=== PATIENT | female | born 1995 | race Caucasian/White ===

== ENCOUNTER 2021-04-05 16:59 | Emergency (ER) | payer BC, MEDICAID, SELFPAY ==
[2021-04-05 17:23] VITALS: PULSE 87; RESP 16; TEMP 36.8; O2SAT 100; BMI 32.1
--- NOTE | 2021-04-05 18:18 | USR_ITS ---
PROCEDURE INFORMATION: Exam: US , Transvaginal Exam date and time: 04/05/2021 6:18 PM Age: 25 years old Clinical indication: Lmp or gestational age (in weeks): 8 weeks; Antepartum complications; Bleeding; ; Additional info: Vaginal bleeding TECHNIQUE: Imaging protocol: Real-time transvaginal obstetrical ultrasound of the maternal pelvis with image documentation. Transvaginal imaging was used for better evaluation of the fetus, adnexa, and/or cervix. COMPARISON: [facility] Follow up 07/26/2016 10:52 AM FINDINGS: Gestation: Single apparent intrauterine gestational sac. BIOMETRY: Gestational age (AUA): Ultrasonographic age 5 weeks 1 day as reported on provided technologist worksheet series 1, image 29. MATERNAL: Right adnexa: Right ovary appears within normal limits. Left adnexa: Left ovary appears within normal limits US/US transvaginal [id number] IMPRESSION: 1. Single apparent intrauterine gestational sac. 2. Ultrasonographic age 5 weeks 1 day as reported on provided technologist worksheet series 1, image 29. Radiation Dose CTDIVOL = (mGy): DLP = (mGy-cm)
--- NOTE | 2021-04-05 18:19 | W.ED.PREGNAN ---
HPI - General: Chief complaint: OB/Uterine Contractions Stated complaint: BLEEDING/9 WKS /UTI COMPLICATIONS Time Seen by Provider: 04/05/21 17:54 History of Present Illness: HPI Narrative: This patient was referred to our emergency department from the [place] emergency department because of concerns about vaginal spotting. Patient's stated that earlier this afternoon she had spontaneous spotting that she noted when she urinated. She states there is no associated cramping. She is not had recent intercourse. She thinks she is approximately 8 weeks by last menstrual period. She was evaluated at the [place] emergency department to include a quantitative hCG, urinalysis. She has evidence of a urinary tract infection and admits to symptoms of urinary frequency recently. No fevers or chills. No nausea vomiting or diarrhea. She has had 1 prior spontaneous vaginal delivery at 34 weeks. No history of bleeding dyscrasias etc. MD Complaint: vaginal bleeding Exacerbating factors: none Vaginal discharge: none Date of Last Menstrual Period: 02/03/21 OB History - Current : no complications Associated symptoms: Deny abdominal pain, dysuria, headache(s), nausea or vomiting Review of Systems Const: Denies: fever(s) or chills Eyes: Denies: change in vision ENMT: Denies: throat pain or odynophagia Card: Denies: chest pain, palpitations or irregular heart rhythm Resp: Denies: dyspnea, productive cough or non-productive cough GI: Denies: abdominal pain, nausea or vomiting : Reports: urinary frequency, urinary urgency and vaginal bleeding; Denies: flank pain, difficulty voiding or dysuria Skin/Breast: Denies: rash Neuro: Denies: headache(s), numbness in extremities or weakness in extremities Enrique/Lymph: Denies: easy bruising or easy bleeding [facility] ED Female Reproductive History: Date of last menstrual period: 02/03/21 Physical Exam Const: COMMON NORMALS: no acute distress, average body habitus and patient oriented x3 HENMT: COMMON NORMALS: normocephalic, atraumatic and moist oral mucous membranes HEAD & SCALP: normocephalic and atraumatic Eye: COMMON NORMALS: Equal, round and reactive pupils present and conjunctivae normal CONJUNCTIVA: Yes conjunctivae normal PUPIL: Yes Equal, round and reactive pupils present Neck/C-Spine: COMMON NORMALS: full ROM, no lymphadenopathy and no JVD Resp: COMMON NORMALS: normal respiratory effort, No retractions, No use of accessory muscles and clear to auscultation bilaterally AUSCULTATION: clear to auscultation bilaterally Cardio: COMMON NORMALS: no JVD, regular rate, regular rhythm and No murmurs present (Cardio) RATE: regular rate RHYTHM: regular rhythm GI: COMMON NORMALS: Normal to inspection, nondistended, normoactive bowel sounds present, Soft to palpation, non-tender and no masses PALPATION: Yes Soft to palpation : COMMON NORMALS: Yes no CVA tenderness BLADDER/KIDNEY EXAM: Yes no CVA tenderness Back/Pelvis: COMMON NORMALS: no CVA tenderness, thoracic and lumbar spine normal to inspection, no thoracic nor lumbar tenderness and thoraco-lumbar ROM normal Extremity: COMMON NORMALS: normal to inspection, full ROM, capillary refill normal, no calf tenderness and no pedal edema Neuro: COMMON NORMALS: patient oriented x3, no focal motor deficits, no sensory deficits noted and gait normal Skin: COMMON NORMALS: no rashes or lesions noted GENERAL SKIN EXAM: no rashes or lesions noted Course Reevaluation(s): Reevaluation #1: Patient's hCG is just over 800 which is less then 1 would expect to see a confirmatory just intrauterine gestation however she does have a gestational sac. This is likely due to her gestation being either less then anticipated and therefore the fetus is not visualized or #2 possible blighted ovum but it is too early to tell this will require serial hCGs as well as serial ultrasounds. She is Rh- we will go ahead and administer RhoGam at this time. Vital Signs: Vital signs: Vital Signs Temperature 98.3 F 04/05/21 17:23 Pulse Rate 80 04/05/21 18:32 Respiratory Rate 16 04/05/21 17:23 Blood Pressure 118/62 04/05/21 18:32 Pulse Oximetry 100 04/05/21 18:32 MDM - OB/Uterine Contractions Imaging Data^: US OB: Radiologist's impression: Ultrasound shows no evidence of extrauterine masses or gestation. Has intrauterine gestational sac measuring approximately 5 weeks. Discharge Plan Discharge Prescriptions: No Action Zyrtec 10 mg Tablet 10 mg PO DAILY RF: 0 acetaminophen 500 mg Tablet 2,000 mg PO PRN MDD SEE PHARMACY COMMENT PRN (Reason: Pain) RF: 0 Flonase 50 mcg/actuation [place],Suspension 2 spray INTRANASAL DAILY PRN (Reason: Nasal Congestion) RF: 0 Coding Level of Care Code ED Pcmh Specialist for Chg Fwd Exam Comprehensive
[2021-04-05 18:32] VITALS: BP 118/62; PULSE 80; O2SAT 100
[2021-04-05 22:10] VITALS: BP 118/74; PULSE 74; RESP 18; O2SAT 99
--- NOTE | 2021-04-05 23:59 | PC.NURSE ---
rhogam adm on R hip lot: [id number] exp date 03/15/22, blood bank ID# [id number]
[2021-04-06 00:17] VITALS: BP 148/74; PULSE 74; RESP 18; O2SAT 99
== END 2021-04-05 23:50 | disposition home or self-care (01) ==
PROVIDERS: Emergency Provider Emergency Medicine; PCP Physician Assistant Medical
DX: O46.91 Antepartum hemorrhage, unspecified, first trimester (principal); Z3A.01 Less than 8 weeks gestation of pregnancy
CPT/HCPCS: 76830; 84702; 86850; 86900; 90384; 99283

== ENCOUNTER 2021-09-05 14:18 | Emergency (ER) | payer BC, MEDICAID, SELFPAY ==
[2021-09-05 14:28] VITALS: BP 113/66; PULSE 81; RESP 16; TEMP 36.7; O2SAT 99; BMI 32.0
--- NOTE | 2021-09-05 14:32 | XRR_ITS ---
PROCEDURE INFORMATION: Exam: XR Right Ankle Exam date and time: 09/05/2021 3:18 PM Age: 25 years old Clinical indication: Injury or trauma; Fall; Blunt trauma; Ankle; Right TECHNIQUE: Imaging protocol: XR Right ankle. Views: 3 or more views. COMPARISON: No relevant prior studies available. FINDINGS: Bones/joints: Nondisplaced oblique fracture of the distal fibula. Soft tissues: Soft tissue swelling along the lateral ankle. XR/XR ankle RT min 3V* [id number] IMPRESSION: Nondisplaced fracture of the distal fibula.
--- NOTE | 2021-09-05 15:42 | ED_ITS ---
HPI - Extremity Problem General: Chief complaint: Extremity Injury, Lower Stated complaint: right ankle swelling Time Seen by Provider: 09/05/21 14:32 History of Present Illness: Patient fell downstairs today injuring her right ankle. Hurts to bear weight. Denies other injury. Associated symptoms: Deny chest pain, fever(s) or rash Review of Systems Const: Denies: fever(s), chills or body aches Eyes: Denies: eye discomfort ENMT: Denies: throat pain Card: Denies: chest pain Resp: Denies: dyspnea GI: Denies: abdominal pain, nausea or vomiting Musc: Reports: joint pain (Right ankle after a fall downstairs) and joint swelling Skin/Breast: Denies: rash Neuro: Denies: headache(s) Psych: Denies: depression or suicidal ideation [facility] ED Female Reproductive History: Date of last menstrual period: 08/10/21 Physical Exam Const: COMMON NORMALS: no acute distress, patient oriented x3 and alert HENMT: COMMON NORMALS: normocephalic HEAD & SCALP: normocephalic Eye: COMMON NORMALS: EOMs intact bilaterally Neck/C-Spine: COMMON NORMALS: no JVD Resp: COMMON NORMALS: normal respiratory effort and No use of accessory muscles Cardio: COMMON NORMALS: no JVD GI: INSPECTION: Yes normal to inspection Extremity: COMMON NORMALS: normal to inspection and full ROM RIGHT LOWER EXTREMITY: Yes foot & digits (Tenderness lateral malleus area) Right ankle: Yes ROM (Decreased) and Yes neurovascular exam (Intact) Neuro: COMMON NORMALS: patient oriented x3 SENSORIUM/ORIENTATION: Yes alert Psych: COMMON NORMALS: mental status grossly normal Skin: COMMON NORMALS: no rashes or lesions noted GENERAL SKIN EXAM: no rashes or lesions noted Course Vital Signs: Vital signs: Vital Signs Temperature 98.1 F 09/05/21 14:28 Pulse Rate 81 09/05/21 14:28 Respiratory Rate 16 09/05/21 14:28 Blood Pressure 113/66 09/05/21 14:28 Pulse Oximetry 99 09/05/21 14:28 MDM - Extremity (Nontraumatic) Medical Decision Making Right fibular fracture nondisplaced. Ortho consult was ordered. Lab Data Radiology Impressions Ankle X-Ray 09/05/21 14:32 IMPRESSION: Nondisplaced fracture of the distal fibula. Discharge Plan Discharge Patient Disposition: Home Clinical Impression: Closed fibular fracture Qualifiers: Encounter type: initial encounter Fibula location: distal Fracture morphology: other fracture Laterality: right Qualified Code(s): S82.831A - Other fracture of upper and lower end of right fibula, initial encounter for closed fracture Condition: Stable Prescriptions: New hydrocodone-acetaminophen 5-325 mg tablet 1 tab PO TID PRN (Reason: pain) Qty: 14 0RF No Action Zyrtec 10 mg Tablet 10 mg PO DAILY 0RF acetaminophen 500 mg Tablet 2,000 mg PO PRN MDD SEE PHARMACY COMMENT PRN (Reason: Pain) 0RF Flonase 50 mcg/actuation [place],Suspension 2 spray INTRANASAL DAILY PRN (Reason: Nasal Congestion) 0RF Discharge Orders: Discharge ED (Routine); Ordered 09/05/21 Ordered By: Deng Martínez Referrals: Teddy Stockton [Primary Care Provider] - Discharge Diet: Usual diet Discharge Activity: Use walker/crutches as instructed Patient Instructions: Ankle Fracture (ED) Activity Restrictions/Additional Instructions: Follow-up with medical provider as directed. Take medications as prescribed. Return to the ER or your medical provider if condition worsens. Please read and understand discharge instructions. If any questions ask please. Hospital will contact you with appointment for orthopedic clinic. Continue use of crutches- to be not weightbearing on right foot. Coding Level of Care Code ED Building Energy Retrofit Technician for Sailaja Farrell
[2021-09-05] MEDS: HYDROcodone-acetaminophen 5-325 mg Tablet 1 TAB PO (15:44)
--- NOTE | 2021-09-07 10:33 | DCPLANNER ---
Addendum entered by Ninfa Lehman 09/30/21 20:19: Patient had a follow up appointment scheduled with ortho - patient did attend appointment. Addendum entered by Ninfa Lehman 09/08/21 08:21: Patient has a follow up appointment scheduled for Wednesday, September 08, 2021 at 2:[address] Jimenez at ortho. Clinic will call patient with appointment information. Original Note: prep manager had message to schedule a follow up appointment for patient with ortho. prep manager sent patients information to the front office staff at ortho. Patients information will be printed and reviewed. Clinic will call patient with appointment information.
== END 2021-09-05 16:20 | disposition home or self-care (01) ==
PROVIDERS: Emergency Provider Nurse Practitioner Family; PCP Physician Assistant Medical
DX: S82.831A Other fracture of upper and lower end of right fibula, initial encounter for closed fracture (principal); W10.9XXA Fall (on) (from) unspecified stairs and steps, initial encounter
CPT/HCPCS: 73610; 99283; E0114

== ENCOUNTER → 2021-09-08 14:32 | Outpatient (BNVA) | payer BC, MEDICAID, SELFPAY | PROVIDERS: PCP Physician Assistant Medical; Referring Provider Nurse Practitioner Family; Visit Provider Podiatrist Foot & Ankle Surgery | DX: S82.831A Other fracture of upper and lower end of right fibula, initial encounter for closed fracture (principal); W10.9XXA Fall (on) (from) unspecified stairs and steps, initial encounter; F17.210 Nicotine dependence, cigarettes, uncomplicated | CPT/HCPCS: 73610; 99204 ==

== ENCOUNTER 2021-09-08 15:25 | Outpatient (CLI) | payer BC, MEDICAID, SELFPAY | END 2021-09-08 15:26 | disposition home or self-care (01) | LOC: SPT 15:25 | PROVIDERS: PCP Physician Assistant Medical; Visit Provider Podiatrist Foot & Ankle Surgery | DX: Z46.89 Encounter for fitting and adjustment of other specified devices (principal); S82.831D Other fracture of upper and lower end of right fibula, subsequent encounter for closed fracture with routine healing; X58.XXXD Exposure to other specified factors, subsequent encounter | CPT/HCPCS: 97760; L4361 ==

== ENCOUNTER → 2021-09-22 07:53 | Outpatient (BNVA) | payer BC, MEDICAID, SELFPAY | PROVIDERS: PCP Physician Assistant Medical; Visit Provider Podiatrist Foot & Ankle Surgery | DX: S82.831A Other fracture of upper and lower end of right fibula, initial encounter for closed fracture (principal); Z32.00 Encounter for pregnancy test, result unknown; F17.210 Nicotine dependence, cigarettes, uncomplicated; W10.9XXA Fall (on) (from) unspecified stairs and steps, initial encounter | CPT/HCPCS: 84702; 99214 ==

== ENCOUNTER → 2021-10-28 07:49 | Outpatient (BNVA) | payer BC, MEDICAID, SELFPAY | PROVIDERS: PCP Physician Assistant Medical; Visit Provider Podiatrist Foot & Ankle Surgery | DX: S82.831A Other fracture of upper and lower end of right fibula, initial encounter for closed fracture (principal); W10.9XXA Fall (on) (from) unspecified stairs and steps, initial encounter | CPT/HCPCS: 73610; 99214 ==

== ENCOUNTER 2021-11-13 09:32 | Emergency (ER) | payer BC, MEDICAID, SELFPAY ==
[2021-11-13 10:58] VITALS: BP 116/74; PULSE 71; RESP 13; TEMP 36.5; O2SAT 100; BMI 32.5
--- NOTE | 2021-11-13 12:48 | ED_ITS ---
HPI - General: Chief complaint: Vaginal Bleeding Stated complaint: 13 weeks preg, bleeding Time Seen by Provider: 11/13/21 09:36 History of Present Illness: Ms. Morton is a 25-year-old lady approximately 13 weeks who presents to the emergency department due to nonpainful vaginal bleeding. She has been at her baseline health the past few days without changes in activity level. She woke up this morning and noted some bleeding that was dark red. Much jewel waxer than a normal period. This has since resolved. No other associated symptoms. No history of bleeding or clotting disorders. Patient does note that she is Rh-. Intensity symptoms was mild. Course is improved. No other specific changes in health, exacerbating, or alleviating factors identified. Onset (ago): hour(s) Severity: mild Vaginal bleeding: light Date of Last Menstrual Period: 08/10/21 Patient : Yes care: none Review of Systems General: Reports: 10 or more systems reviewed and unremarkable except in HPI and below PFSH ED PFSH: Medical History No significant past medical history Surgical History No significant past surgical history Family History (Updated 11/25/21 @ 23:42 by Dane More MD) Denies family history of Clotting disorder Bleeding disorder Social History Smoking and tobacco status: current every day smoker Female Reproductive History: Date of last menstrual period: 08/10/21 Physical Exam Const: COMMON NORMALS: alert GENERAL APPEARANCE: cooperative and well developed HENMT: COMMON NORMALS: normocephalic and atraumatic HEAD & SCALP: normocephalic and atraumatic THROAT: posterior oropharynx normal Eye: COMMON NORMALS: conjunctivae normal CONJUNCTIVA: Yes conjunctivae normal SCLERA: sclerae normal Neck/C-Spine: COMMON NORMALS: supple GENERAL: Yes trachea midline Resp: COMMON NORMALS: normal respiratory effort EFFORT & INSPECTION: Yes able to speak in complete sentences Cardio: COMMON NORMALS: regular rate and regular rhythm RATE: regular rate RHYTHM: regular rhythm GI: COMMON NORMALS: Soft to palpation PALPATION: Yes Soft to palpation and No Tenderness to palpation present (GI) PERCUSSION: normal to percussion : OTHER: Pelvic exam performed with contract negotiation specialist present. Normal external genitalia without bleeding. No blood in the vaginal vault. Cervix closed. Extremity: GENERAL: Yes normal exam except as noted and No edema Neuro: COMMON NORMALS: moves all extremities SENSORIUM/ORIENTATION: Yes alert and No Orientation impaired Psych: COMMON NORMALS: mental status grossly normal and Normal thought process present THOUGHT PROCESS: Normal thought process present Course ED course: - Patient was seen and evaluated by me at bedside - Patient placed on cardiac monitors - Initial evaluation notable for exam as above - Labs personally interpreted by me - Labs notable for minimal leukocytosis, normal hemoglobin. Metabolic panel with mild evidence of dehydration. Patient able to tolerate p.o. intake. No urinary tract infection. Wet prep negative. - Imaging notable for single intrauterine gestation with heart rate 150 consistent with 13 weeks 5 days. No obvious abnormality identified as explanation of bleeding. - Upon serial reexamination after treatment the patient was similar - Based on patient history, evaluation, and testing as interpreted the most likely cause of the patient's condition is vaginal pain during - The results of ED evaluation were discussed with the patient including prescriptions and/or symptomatic cares (if applicable) including appropriate and responsible use, followup plan, and return precautions. The patient verbalized understanding and felt safe for discharge. - Patient discharged in satisfactory condition. Note: Click bubbles or prepopulated franco in note writing are used for assistance with data collection and billing and are inherently more limited than narrative and other text portions of this note. Please use narrative for additional clinical history and defer to narrative/free test for any case of contradictory information. If information appears in only free text or click bubble it should be considered present or absent as reported. Please contact note technical proposal writer for clarifications of clinical information or contradictory information. MDM is a brief summary, contradictory or erroneous seeming information should be clarified and full note should be reviewed. Vital Signs: Vital signs: Vital Signs Temperature 97.7 F 11/13/21 10:58 Pulse Rate 76 11/13/21 16:20 Respiratory Rate 14 11/13/21 16:20 Blood Pressure 116/78 11/13/21 16:20 Pulse Oximetry 98 11/13/21 15:51 MDM - OB/Uterine Contractions Medical Decision Making 26-year-old lady currently presenting due to vaginal bleeding that has resolved. Cervix closed and ultrasound without acute abnormality observed for single intrauterine gestation at 13 weeks 5 days. Discussed Placenta position and requirement for follow-up with patient. Satisfactory for outpatient management. Medical Records I reviewed the patient's medical records. Lab Data I reviewed the patient's lab results. : 11/13/21 13:18 11/13/21 13:18 Radiology Impressions Ultrasound 11/13/21 14:15 IMPRESSION: 1. Single intrauterine gestation of 13 weeks 5 days with an EDC of 05/16/2022. 2. Normal cervix. No cervical insufficiency. 3. No placental abruption. Laboratory Results WBC 10.1 10^3/uL (4.0-10.0) H 11/13/21 13:18 RBC 4.64 10^6/uL (4.1-5.3) 11/13/21 13:18 Hgb 14.3 g/dL (11.5-15.3) 11/13/21 13:18 Hct 40.8 % (37.0-47.0) 11/13/21 13:18 MCV 87.9 fl (81-99) 11/13/21 13:18 MCH 30.8 pg (28.0-34.0) 11/13/21 13:18 MCHC 35.0 g/dL (30.0-36.0) 11/13/21 13:18 RDW 11.9 % (12.1-15.1) L 11/13/21 13:18 Plt Count 267 10^3/cmm (130-400) 11/13/21 13:18 MPV 10.7 fL (7.4-10.4) H 11/13/21 13:18 Neut % (Auto) 73.9 % 11/13/21 13:18 Lymph % (Auto) 20.3 % 11/13/21 13:18 [place] % (Auto) 4.1 % 11/13/21 13:18 Eos % (Auto) 0.8 % 11/13/21 13:18 Baso % (Auto) 0.4 % 11/13/21 13:18 Neut # (Auto) 7.46 10^3/uL (1.8-7.7) 11/13/21 13:18 Lymph # (Auto) 2.1 10^3/uL (0.8-4.8) 11/13/21 13:18 [place] # (Auto) 0.4 10^3/uL (0.2-0.9) 11/13/21 13:18 Eos # (Auto) 0.1 10^3/uL (0.0-0.8) 11/13/21 13:18 Baso # (Auto) 0.0 10^3/uL (0.0-0.1) 11/13/21 13:18 Nucleated RBC % (auto) 0 % 11/13/21 13:18 Nucleated RBCs # 0.0 /100WBC 11/13/21 13:18 Sodium 135 mmol/L (136-145) L 11/13/21 13:18 Potassium 4.1 mmol/L (3.5-5.1) 11/13/21 13:18 Chloride 102 mmol/L (98-107) 11/13/21 13:18 Carbon Dioxide 19 mmol/L (22-29) L 11/13/21 13:18 Anion Gap 18.1 (5-19) 11/13/21 13:18 BUN 5 mg/dL (6-20) L 11/13/21 13:18 Creatinine 0.4 mg/dL (0.5-0.9) L 11/13/21 13:18 GFR Calculation 197.8 mL/min (90-130) H 11/13/21 13:18 Glucose 78 mg/dL (65-115) 11/13/21 13:18 Calculated Osmolality 276 mOsm/kg (285-295) L 11/13/21 13:18 Calcium 8.8 mg/dL (8.5-10.5) 11/13/21 13:18 Urine Color Yellow (Yellow) 11/13/21 15:11 Urine Appearance Clear (CLEAR) 11/13/21 15:11 Urine pH 6 (5-7) 11/13/21 15:11 Ur Specific [place] 1.010 (1.005-1.030) 11/13/21 15:11 Urine Protein Neg (Negative) 11/13/21 15:11 Urine Glucose (UA) Norm (Normal) 11/13/21 15:11 Urine Ketones Negative (Negative) 11/13/21 15:11 Urine Blood Neg (Negative) 11/13/21 15:11 Urine Nitrate Negative (Negative) 11/13/21 15:11 Urine Bilirubin Neg (Negative) 11/13/21 15:11 Urine Urobilinogen Norm mg/dL (Negative) 11/13/21 15:11 Ur Leukocyte Esterase Negative (Negative) 11/13/21 15:11 Blood Type O Negative 11/13/21 13:45 Rho(D) Type Negative 11/13/21 13:45 Antibody Screen Negative 11/13/21 13:45 Discharge Plan Discharge Patient Disposition: Home Clinical Impression: Vaginal bleeding during , Mild dehydration Condition: Stable Prescriptions: No Action (DME) ASO to the right See Rx Instructions .Route .MEDSUPPLY Qty: 1 0RF Rx Instructions: As directed (DME) [place] to the right See Rx Instructions .Route .MEDSUPPLY Qty: 1 0RF Rx Instructions: As directed Tylenol Ex Str Rapid Release 500 mg Tablet 500 mg PO Q6H PRN (Reason: Pain) 0RF Flintstones Gummies Tablet,Chewable 2 tab PO DAILY 0RF Discharge Orders: Discharge ED (Routine); Ordered 11/13/21 Ordered By: Dane More Referrals: Teddy Stockton [Primary Care Provider] - Discharge Diet: Usual diet Discharge Activity: Resume usual activity Patient Instructions: Threatened Miscarriage (ED), Dehydration (ED) Activity Restrictions/Additional Instructions: Thank you for visiting the emergency department. You were seen and evaluated for vaginal bleeding during . The exact cause of your symptoms is unclear. You were found to have a low-lying placenta which needs follow-up. Please follow-up with your laborer pipelines. Please ensure that you are staying hydrated. Return to the emergency department for recurrent symptoms or anything else that you are concerned about and feel needs emergency department evaluation. Coding Level of Care Code ED Accordion Repairer for Sailaja Farrell
[2021-11-13 13:28] LABS: Basophils % 0.4 %; Eosinophils # 0.1 10^3/uL (0.0-0.8); Eosinophils % 0.8 %; Hematocrit 40.8 % (37.0-47.0); Hemoglobin 14.3 g/dL (11.5-15.3); Lymphocytes # 2.1 10^3/uL (0.8-4.8); Lymphocytes % 20.3 %; Mean Corpuscular Hemoglobin 30.8 pg (28.0-34.0); Mean Corpuscular Volume 87.9 fl (81-99); Mean Platelet Volume 10.7 fL (7.4-10.4); Monocytes # 0.4 10^3/uL (0.2-0.9); Monocytes % 4.1 %; Neutrophils # 7.46 10^3/uL (1.8-7.7); Neutrophils % 73.9 %; Nucleated Red Blood Cells % 0 %; Platelet Count 267 10^3/cmm (130-400); Red Blood Count 4.64 10^6/uL (4.1-5.3); Red Cell Distribution Width 11.9 % (12.1-15.1); White Blood Count 10.1 10^3/uL (4.0-10.0)
[2021-11-13 13:45] LABS: Blood Urea Nitrogen 5 mg/dL (6-20); Calcium 8.8 mg/dL (8.5-10.5); Carbon Dioxide 19 mmol/L (22-29); Chloride 102 mmol/L (98-107); Glomerular Filtration Rate 197.8 mL/min (90-130); Glucose 78 mg/dL (65-115); Osmolality Calculated 276 mOsm/kg (285-295); Sodium 135 mmol/L (136-145)
[2021-11-13 13:50] LABS: Anion Gap 18.1 (5-19); Potassium 4.1 mmol/L (3.5-5.1)
--- NOTE | 2021-11-13 14:15 | US_ITS ---
WS: [id number] EARLY OBSTETRICAL ULTRASOUND (<14 WEEKS). HISTORY: bleeding COMPARISON: None available. Single intrauterine gestational sac is identified. Cardiac activity at 150 BPM. Biometry consistent w ith a gestational age of 13 weeks and 5 days. Placenta is developing posteriorly. No complete previa. Placenta is low-lying. This will be more accu rately evaluated as progresses. No abruption. The cervix is closed measuring 5 cm in length . No free fluid in the pelvis. Normal amount of amniotic fluid surrounds the fetus. No adnexal masses . US/US OB <= 14 weeks fetus [id number] IMPRESSION: 1. Single intrauterine gestation of 13 weeks 5 days with an EDC of 05/16/2022. 2. Normal cervix. No cervical insufficiency. 3. No placental abruption.
[2021-11-13 14:33] VITALS: BP 110/73; PULSE 76; RESP 14; O2SAT 98
[2021-11-13 15:14] LABS: Add Urine Microscopic? NO; Charge for UA Resulting for Rev
[2021-11-13 15:20] LABS: Urine Appearance Clear (CLEAR); Urine Color Yellow (Yellow); pH Urine 6 (5-7)
[2021-11-13 15:21] LABS: Bilirubin Urine Neg (Negative); Blood Urine Neg (Negative); Glucose Urine UA Norm (Normal); Ketones Urine Negative (Negative); Leukocyte Esterase Urine Negative (Negative); Nitrate Urine Negative (Negative); Protein Urine Neg (Negative); Urobilinogen Urine Norm (Negative)
[2021-11-13 15:51] VITALS: BP 104/58; O2SAT 98
[2021-11-13 16:20] VITALS: BP 116/78; PULSE 76; RESP 14
--- NOTE | 2021-11-13 16:23 | PC.NURSE ---
rhogam administered left hip
== END 2021-11-13 16:46 | disposition home or self-care (01) ==
PROVIDERS: Emergency Provider Emergency Medicine; PCP Physician Assistant Medical
DX: O20.9 Hemorrhage in early pregnancy, unspecified (principal); O99.281 Endocrine, nutritional and metabolic diseases complicating pregnancy, first trimester; E86.0 Dehydration; O99.331 Smoking (tobacco) complicating pregnancy, first trimester; F17.200 Nicotine dependence, unspecified, uncomplicated; Z3A.13 13 weeks gestation of pregnancy
CPT/HCPCS: 76801; 80048; 81003; 85025; 86850; 86900; 87210; 90384; 99283

== ENCOUNTER 2022-01-06 06:05 | Outpatient (CLI) | payer BC, MEDICAID, SELFPAY ==
--- NOTE | 2022-01-06 | US_ITS ---
WS: [id number] OB ultrasound, 01/06/2022 Clinical Data: 2ND TRIMESTER ANATOMY SCAN Comparison: OB ultrasound, 11/14/2019. Findings: There is a single intrauterine in the which presentation. The placenta is v and grade 0. Th e cervix is 4.49 cm and closed. There is a normal amount of amnionic fluid at 14.35 cm. The hea rt rate is 157 beats per minute. Measurements of growth and development: BPD: 4.9 cm 20 weeks 5 days HC: 18.6 cm 21 weeks 0 days AC: 15.8 cm 21 weeks 0 days FL: 3.5 cm 21 weeks 1 day The estimated weight is 394 or approximately or 14 ounces. The estimated gestational age is 21w0d with an ZOE of approximately 05/19/2022. anatomy show a normal stomach, kidneys, bladder, cord insertion, three-vessel cord, cord insert ion, bilateral extremities, entire spine, four-chamber heart, facial profile, lateral cerebral ventri cles, cerebellum and cisterna magna. Female gender was noted. US/US OB >= 14 weeks fetus [id number] Impression: 1. Single intrauterine in vertex presentation. 2. Estimated gestational age 21w0d with an ZOE of 05/19/2022. 3. heart rate 157 beats per minute.
== END 2022-01-06 06:06 | disposition home or self-care (01) ==
LOC: RAD 06:06
PROVIDERS: PCP Physician Assistant Medical; Visit Provider Family Medicine
DX: Z34.92 Encounter for supervision of normal pregnancy, unspecified, second trimester (principal); Z3A.21 21 weeks gestation of pregnancy
CPT/HCPCS: 76805

== ENCOUNTER 2022-02-16 11:00 | Outpatient (CLI) | payer BC, MEDICAID, SELFPAY ==
[2022-02-16] VITALS (8 sets, daily range): BP systolic 89–98; BP diastolic 51–56; PULSE 86–93; RESP 16–18; TEMP 36
== END 2022-02-16 12:15 | disposition home or self-care (01) ==
LOC: OPOB 11:10 → OBGYN 11:11
PROVIDERS: PCP Physician Assistant Medical; Visit Provider Family Medicine
DX: O36.8390 Maternal care for abnormalities of the fetal heart rate or rhythm, unspecified trimester, not applicable or unspecified (principal); Z3A.00 Weeks of gestation of pregnancy not specified
CPT/HCPCS: 59025; 99211

== ENCOUNTER → 2022-02-25 08:59 | Day surgery (SDC) | payer BC, MEDICAID, SELFPAY ==
[2022-02-25 10:38] VITALS: BP 96/62; PULSE 83; RESP 18; TEMP 36.4; O2SAT 99
[2022-02-25 10:40] VITALS: BP 96/62; PULSE 83; RESP 18; TEMP 36.4; O2SAT 99
== END ==
PROVIDERS: PCP Physician Assistant Medical; Visit Provider Family Medicine
DX: O26.892 Other specified pregnancy related conditions, second trimester (principal); Z3A.00 Weeks of gestation of pregnancy not specified
CPT/HCPCS: 36415; 86850; 86900; 90384; 96372

== ENCOUNTER 2022-05-01 22:30 | Outpatient (CLI) | payer BC, MEDICAID, SELFPAY ==
[2022-05-01 22:45] VITALS: RESP 17; TEMP 36.7
[2022-05-01 23:03] VITALS: BP 119/75; PULSE 99
[2022-05-01 23:13] VITALS: BMI 36.2
[2022-05-01 23:30] VITALS: BP 119/75; PULSE 99; RESP 18; TEMP 36.7
== END 2022-05-01 23:23 | disposition home or self-care (01) ==
LOC: OPOB 22:37 → OBGYN 22:37
PROVIDERS: PCP Physician Assistant Medical; Visit Provider Family Medicine
DX: O26.899 Other specified pregnancy related conditions, unspecified trimester (principal); Z3A.00 Weeks of gestation of pregnancy not specified; R10.9 Unspecified abdominal pain
CPT/HCPCS: 59025; 99211

== ENCOUNTER 2022-05-04 08:18 | Outpatient (CLI) | payer BC, MEDICAID, SELFPAY ==
[2022-05-04 08:20] VITALS: BMI 35.6
[2022-05-04 08:22] VITALS: BP 114/75; PULSE 85
[2022-05-04 08:42] VITALS: BP 119/74; PULSE 81
[2022-05-04 09:02] VITALS: BP 110/75; PULSE 73
[2022-05-04 09:23] VITALS: BP 114/78; PULSE 70
[2022-05-04 09:43] VITALS: BP 115/77; PULSE 81
[2022-05-04 10:58] VITALS: BP 115/77; PULSE 81; RESP 18; TEMP 36.6
== END 2022-05-04 10:00 | disposition home or self-care (01) ==
LOC: OPOB 08:19 → OBGYN 08:20
PROVIDERS: PCP Physician Assistant Medical; Visit Provider Family Medicine
DX: O26.899 Other specified pregnancy related conditions, unspecified trimester (principal); Z3A.00 Weeks of gestation of pregnancy not specified; R10.9 Unspecified abdominal pain
CPT/HCPCS: 59025; 99211

== ENCOUNTER 2022-05-04 16:36 | Inpatient (IN) | payer BC, MEDICAID, SELFPAY ==
[2022-05-04] VITALS (51 sets, daily range): BP systolic 113–160; BP diastolic 63–90; PULSE 65–120; RESP 16–17; TEMP 35.5–36.7; O2SAT 95–100
[2022-05-04] MEDS: lactated ringers 1,000 ML 999 ML IV (17:10)
[2022-05-04] MEDS: ampicillin 2,000 MG in sodium chloride 0.9% (plus) 50 ML 100 MG IV (17:11)
[2022-05-04 17:19] LABS: Basophils # 0.1 10^3/uL (0.0-0.1); Basophils % 0.4 %; Eosinophils # 0.1 10^3/uL (0.0-0.8); Eosinophils % 0.4 %; Hematocrit 43.2 % (37.0-47.0); Hemoglobin 14.9 g/dL (11.5-15.3); Lymphocytes # 2.6 10^3/uL (0.8-4.8); Lymphocytes % 16.7 %; Mean Corpuscular HGB Conc 34.5 g/dL (30.0-36.0); Mean Corpuscular Volume 92.7 fl (81-99); Mean Platelet Volume 11.5 fL (7.4-10.4); Monocytes # 0.8 10^3/uL (0.2-0.9); Monocytes % 5.1 %; Neutrophils # 11.97 10^3/uL (1.8-7.7); Neutrophils % 76.4 %; Nucleated Red Blood Cells % 0 %; Platelet Count 237 10^3/cmm (130-400); Red Blood Count 4.66 10^6/uL (4.1-5.3); Red Cell Distribution Width 13.3 % (12.1-15.1); White Blood Count 15.7 10^3/uL (4.0-10.0)
--- NOTE | 2022-05-04 18:16 | P.ANES_ITS ---
Anesthesia Procedures Procedure/Date: 05/04/22 Epidural: Time Out Performed: Yes Consents Signed: Procedure Consent Consent: requested by attending/covering physician and patient agrees to proceed Lumbar Level: L3-L4 Epidural position: sitting Epidural procedure: sterile prep of area, 1% lidocaine to numb the area, 18 g needle, negative for p aresthesia passed, neg for paresthesia, test dose given, 1.5% xylocaine 1:200k epi (5 ml), 0.2% Ropivacaine bolus ml (5ml), placed PCEA, no systemic response, sterile dressing applied, L.U.D. no apparent complications and 0.2% Ropiavacaine @ mls/hr (13)
--- NOTE | 2022-05-04 19:12 | PM.OPHPUD ---
Labor & Delivery H&P Update Date of Procedure: May 04, 2022 Date H&P Performed: 05/04/22 Admission Diagnosis: Active labor at 38 weeks 1 day Preop diagnosis: IUP Planned procedure: expectant managment
--- NOTE | 2022-05-04 19:13 | PM.DELIVERY ---
Delivery Note: Date of delivery: May 04, 2022 Procedure: Normal spontaneous vaginal delivery Estimated blood loss (mL): 150 Pre-Delivery Course: The patient had routine care at [facility]. There were no complications during the . She was blood type O negative, antibody neg, HepB NR, HIV NR, Hep C NR, rubella nonimmune, UDS positive for marijuana, GBS positive, GTT passed. Delivery: This is a 26-year-old G3, P1 at 38 weeks 1 day gestation who presented to labor and delivery in active labor with advanced dilation. She did receive an epidural for pain management but it did not have much time to think active before she is complete and will be discharged. She had spontaneous rupture of membranes with clear fluid less than 45 minutes prior to delivery. She was noted to be GBS positive and received 1 dose of ampicillin prior to delivery. Was less than 4 hours from delivery. She had a normal spontaneous vaginal delivery of a viable female infant weight 2510 g, Apgars 8 and 9 over an intact perineum. The was suctioned at delivery and placed on the mother's chest. The cord was clamped and cut. Cord blood was obtained. Apgars 8 and 9. There was a small second-degree perineal laceration that was sutured sutured using 3-0 chromic. Since her epidural had not yet taken effect 1% lidocaine without epinephrine was injected for anesthetic. Patient tolerated the procedure well. Mother and infant were doing well after delivery. Coding Level of Care Code Acute Benefit Authorizer for Sailaja Farrell
[2022-05-04] MEDS: lidocaine 2% INJ 20 mL INJECTION (19:31)
[2022-05-04] MEDS: oxytocin 30 UNIT/500 ML BAG 600 UNIT IV (19:33)
[2022-05-04] MEDS: ibuprofen 800 mg tablet PO (22:18)
[2022-05-04] MEDS: HYDROcodone-acetaminophen 5-325 mg Tablet PO (23:38)
[2022-05-05 00:35] VITALS: BP 112/61; PULSE 68; RESP 18; TEMP 36.7
[2022-05-05 02:30] VITALS: BP 116/84; PULSE 67; RESP 18; TEMP 36.7; O2SAT 98
[2022-05-05 04:35] VITALS: BP 112/62; PULSE 71; RESP 18; TEMP 36.7; O2SAT 99
[2022-05-05 08:09] LABS: Hematocrit 38.2 % (37.0-47.0); Hemoglobin 12.7 g/dL (11.5-15.3); Mean Corpuscular HGB Conc 33.2 g/dL (30.0-36.0); Mean Corpuscular Hemoglobin 31.5 pg (28.0-34.0); Mean Corpuscular Volume 94.8 fl (81-99); Mean Platelet Volume 12.1 fL (7.4-10.4); Platelet Count 192 10^3/cmm (130-400); Red Blood Count 4.03 10^6/uL (4.1-5.3); Red Cell Distribution Width 13.2 % (12.1-15.1); White Blood Count 13.6 10^3/uL (4.0-10.0)
[2022-05-05] MEDS: ibuprofen 800 mg tablet PO ×3 (08:53→20:11)
[2022-05-05] MEDS: docusate sodium 100 mg Capsule PO ×2 (08:54→17:49)
[2022-05-05 10:00] VITALS: BP 129/84; PULSE 78; RESP 16; TEMP 36.9; O2SAT 99
[2022-05-05] MEDS: HYDROcodone-acetaminophen 5-325 mg Tablet PO ×2 (10:28→17:49)
[2022-05-05 16:00] VITALS: BP 120/83; PULSE 92; RESP 17; TEMP 36.7; O2SAT 99
--- NOTE | 2022-05-05 17:35 | PM.PN ---
Subjective Subjective: Mother is feeling well and denies any significant bleeding. She has no complaints. Vitals/I&O/Wt Last Vital Signs Temp 98.1 F 05/05/22 16:00 Pulse 92 05/05/22 16:00 Resp 17 05/05/22 16:00 BP 120/83 05/05/22 16:00 Pulse Ox 99 05/05/22 16:00 O2 Del Method 05/05/22 16:00 05/05/22 05/05/22 05/05/22 06:59 14:59 22:59 Intake Total 1600 / 3150 Balance 1600 / 3050 Weight last 48 hrs Weight 88.451 kg Physical Exam Narrative: Alert and oriented, sitting up in bed eating dinner, heart regular rate and rhythm, lungs clear to auscultation bilaterally, abdomen is soft and nontender, fundus is firm and U- 3, extremities have some edema but no calf tenderness. Urinary Catheter Management: Nichols Latex: Cath Placed During This Visit: yes, but has since been removed by the nurse Reason for Continuing Indwelling Catheter: Other Urinary Catheter Date of Insertion: 05/04/22 Urinary Catheter Time of Insertion: 18:20 Date Urinary Catheter Removed: 05/04/22 Time Urinary Catheter Discontinued: 18:35 Data 05/05/22 06:53 A&P Assessment and plan (1) (normal spontaneous vaginal delivery): Routine care. Attestations Medical Necessity Statement*: Routine care Coding Level of Care Code Acute Entertainment Dancer for Chg Fwd Diagnoses (normal spontaneous vaginal delivery) O80
[2022-05-05] MEDS: benzocaine-menthol 78 gm Canister 1 SPRAY TOPICAL (20:11)
[2022-05-05 21:15] VITALS: BP 113/74; PULSE 90; RESP 16; TEMP 36.8
[2022-05-06 04:15] VITALS: BP 125/76; PULSE 74; RESP 16; TEMP 36.6
[2022-05-06] MEDS: ibuprofen 800 mg tablet PO ×2 (08:00→15:21)
[2022-05-06] MEDS: docusate sodium 100 mg Capsule PO (08:01)
[2022-05-06] MEDS: HYDROcodone-acetaminophen 5-325 mg Tablet PO (08:01)
[2022-05-06 09:59] VITALS: BP 111/76; PULSE 84; RESP 16; TEMP 36.6
[2022-05-06 15:21] VITALS: BP 121/76; PULSE 92; RESP 16; TEMP 36.5
--- NOTE | 2022-05-06 16:25 | PM.DCS ---
Discharge Providers Date of Admission: 05/04/22 16:36 Date of Discharge: May 06, 2022 Attending Provider at Admission: Vandana Lisa MD Attending Provider at Discharge: Vandana Lisa MD Primary Care Provider: Teddy Stockton Diagnoses at Discharge Discharge Diagnosis (1) (normal spontaneous vaginal delivery): Status: Acute Reason for Visit Reason for Visit: CONTRACTIONS Hospital Course Hospital Course This is a 26-year-old G3 now P2 who was admitted in active labor at 38 weeks gestation. She had a normal spontaneous vaginal delivery of a viable female infant. Mother and infant did well after delivery. On day #2 mother was ambulating had decreased vaginal bleeding and was comfortable with discharge home. Physical Exam Narrative: Alert and oriented, walking around the room, heart regular rate and rhythm, lungs clear to auscultation bilaterally, abdomen soft and nontender, fundus firm and U- 2 ,extremities have trace edema but no calf tenderness. Urinary Catheter Management: Nichols Latex: Cath Placed During This Visit: yes, but has since been removed by the nurse Reason for Continuing Indwelling Catheter: Other Urinary Catheter Date of Insertion: 05/04/22 Urinary Catheter Time of Insertion: 18:20 Date Urinary Catheter Removed: 05/04/22 Time Urinary Catheter Discontinued: 18:35 Discharge Data Studies Completed and Pending Laboratory Results WBC 13.6 10^3/uL (4.0-10.0) H 05/05/22 06:53 RBC 4.03 10^6/uL (4.1-5.3) L 05/05/22 06:53 Hgb 12.7 g/dL (11.5-15.3) 05/05/22 06:53 Hct 38.2 % (37.0-47.0) 05/05/22 06:53 MCV 94.8 fl (81-99) 05/05/22 06:53 MCH 31.5 pg (28.0-34.0) 05/05/22 06:53 MCHC 33.2 g/dL (30.0-36.0) 05/05/22 06:53 RDW 13.2 % (12.1-15.1) 05/05/22 06:53 Plt Count 192 10^3/cmm (130-400) 05/05/22 06:53 MPV 12.1 fL (7.4-10.4) H 05/05/22 06:53 Neut % (Auto) 76.4 % 05/04/22 17:00 Lymph % (Auto) 16.7 % 05/04/22 17:00 [place] % (Auto) 5.1 % 05/04/22 17:00 Eos % (Auto) 0.4 % 05/04/22 17:00 Baso % (Auto) 0.4 % 05/04/22 17:00 Neut # (Auto) 11.97 10^3/uL (1.8-7.7) H 05/04/22 17:00 Lymph # (Auto) 2.6 10^3/uL (0.8-4.8) 05/04/22 17:00 [place] # (Auto) 0.8 10^3/uL (0.2-0.9) 05/04/22 17:00 Eos # (Auto) 0.1 10^3/uL (0.0-0.8) 05/04/22 17:00 Baso # (Auto) 0.1 10^3/uL (0.0-0.1) 05/04/22 17:00 Nucleated RBC % (auto) 0 % 05/04/22 17:00 Nucleated RBCs # 0.0 /100WBC 05/04/22 17:00 Blood Type O Negative 05/04/22 17:00 Rho(D) Type Negative 05/04/22 17:00 Antibody Screen Positive 05/04/22 17:00 Antibody Identification Anti-D 05/04/22 17:00 Vitals Last Vital Signs Temp 97.7 F 05/06/22 15:21 Pulse 92 05/06/22 15:21 Resp 16 05/06/22 15:21 BP 121/76 05/06/22 15:21 Pulse Ox 99 05/05/22 16:00 O2 Del Method 05/05/22 16:00 Discharge Plan Discharge Patient Disposition: Home Condition: Stable Prescriptions: Continued acetaminophen 500 mg Tablet 500 mg PO Q6H PRN (Reason: Pain) Flintstones Gummies Tablet,Chewable 2 tab PO DAILY omeprazole 1 tab PO Q6H Discharge Orders: Discharge Order (Routine); Ordered 05/06/22 Ordered By: Vandana Lisa Referrals: Vandana Lisa MD [Physician] - 1 month Discharge Diet: Usual diet Discharge Activity: Limit activity as instructed Patient Instructions: Depression (DC), Bleeding (DC), Preeclampsia and Eclampsia After Delivery (GEN), OB Discharge Report, OB Food/Drug Interaction Guide, Opioid Safety, OB Home Care, OB Vaginal Deliveries Discharge Attestations Time Spent in Discharge Care*: less than 30 min Quality Metrics Clinical Quality Measures [ No reported AMI, CVA or VTE this stay] Coding Level of Care Code Acute Chg FW DC note Diagnoses (normal spontaneous vaginal delivery) O80
[2022-05-06 19:24] VITALS: BP 118/81; PULSE 99; RESP 15; TEMP 36.7
[2022-05-06 19:29] VITALS: BP 118/81; PULSE 99; RESP 15; TEMP 36.7
== END 2022-05-06 19:35 | disposition home or self-care (01) | DRG 807 ==
LOC: OPOB 16:37 → OBGYN 16:38
PROVIDERS: Admitting Provider Family Medicine; PCP Physician Assistant Medical; Visit Provider Family Medicine
DX: O99.824 Streptococcus B carrier state complicating childbirth (principal); Z37.0 Single live birth; O99.324 Drug use complicating childbirth; F12.90 Cannabis use, unspecified, uncomplicated; O70.1 Second degree perineal laceration during delivery; Z3A.38 38 weeks gestation of pregnancy
CPT/HCPCS: 36415; 51702; 59025; 59409; 80503; 85025; 85027; 86850; 86870; 86900; 99211; J0290; J2590; J2795; J7120

== ENCOUNTER → 2023-07-12 10:27 | Outpatient (BNVA) | payer BC, MEDICAID, SELFPAY | PROVIDERS: PCP Physician Assistant Medical; Visit Provider Registered Nurse Neonatal Intensive Care | DX: R11.2 Nausea with vomiting, unspecified (principal); R19.7 Diarrhea, unspecified | CPT/HCPCS: 87400 ==

== ENCOUNTER 2024-07-16 07:31 | Oncology outpatient (recurring) (ONCR) | payer BC, MEDICAID, SELFPAY ==
[2024-07-16] MEDS: rho(d) immune globulin 1,500 unit Syringe 1500 UNIT IM (07:53)
== END 2024-07-20 23:59 | disposition home or self-care (01) ==
PROVIDERS: PCP Physician Assistant Medical; Visit Provider Family Medicine
DX: Z29.13 Encounter for prophylactic Rho(D) immune globulin (principal); O36.0990 Maternal care for other rhesus isoimmunization, unspecified trimester, not applicable or unspecified; Z3A.00 Weeks of gestation of pregnancy not specified
CPT/HCPCS: 96372; J2790

== ENCOUNTER 2024-09-01 12:36 | Outpatient (CLI) | payer BC, MEDICAID, SELFPAY ==
[2024-09-01] VITALS (7 sets, daily range): BP systolic 101–115; BP diastolic 63–77; PULSE 71–87; RESP 16; BMI 31.1
[2024-09-01 13:29] LABS: Basophils % 0.4 %; Eosinophils # 0.2 10^3/uL (0.0-0.8); Eosinophils % 1.9 %; Lymphocytes # 1.8 10^3/uL (0.8-4.8); Lymphocytes % 19.8 %; Mean Corpuscular HGB Conc 33.5 g/dL (30-55); Mean Corpuscular Hemoglobin 30.5 pg (27-33); Mean Corpuscular Volume 91.1 fl (85-98); Mean Platelet Volume 10.6 fL (7.4-10.4); Monocytes # 0.6 10^3/uL (0.2-0.9); Monocytes % 6.5 %; Neutrophils # 6.35 10^3/uL (1.8-7.7); Neutrophils % 70.1 %; Nucleated Red Blood Cells % 0 %; Platelet Count 206 10^3/cmm (157-399); Red Blood Count 4.06 10^6/uL (3.85-5.65); Red Cell Distribution Width 13.4 % (12.1-15.1); White Blood Count 9.07 10^3/uL (3.29-11.43)
[2024-09-01] MEDS: calcium carbonate 500 mg Chew Tablet 1000 MG PO (13:29)
[2024-09-01 13:52] LABS: Alanine Aminotransferase 7 U/L (0-33); Albumin Level 3.3 g/dL (3.5-5.2); Alkaline Phosphatase 140 U/L (35-105); Anion Gap 14.8 (5-19); Aspartate Amino Transferase 14 U/L (0-32); Blood Urea Nitrogen 6 mg/dL (6-20); Calcium 8.3 mg/dL (8.5-10.5); Carbon Dioxide 22 mmol/L (22-29); Chloride 104 mmol/L (98-107); Glomerular Filtration Rate 120.8 mL/min (90-130); Glucose 81 mg/dL (65-115); Osmolality Calculated 281 mOsm/kg (285-295); Potassium 3.8 mmol/L (3.5-5.1); Sodium 137 mmol/L (136-145); Total Bilirubin 0.4 mg/dL (0.15-1.2); Total Protein 6.3 g/dL (6.6-8.7)
== END 2024-09-01 14:05 | disposition home or self-care (01) ==
LOC: OPOB 12:36 → OBGYN 12:37
PROVIDERS: PCP Physician Assistant Medical; Visit Provider Family Medicine
DX: O26.899 Other specified pregnancy related conditions, unspecified trimester (principal); Z3A.00 Weeks of gestation of pregnancy not specified; R10.9 Unspecified abdominal pain
CPT/HCPCS: 36415; 59025; 80053; 85025; 99211; J9999

== ENCOUNTER 2024-09-12 09:56 | Inpatient (IN) | payer BC, MEDICAID, SELFPAY ==
[2024-09-12] VITALS (73 sets, daily range): BP systolic 95–183; BP diastolic 50–122; PULSE 29–124; O2SAT 84–100; BMI 31.4
[2024-09-12 10:47] LABS: Basophils # 0.1 10^3/uL (0.0-0.1); Basophils % 0.5 %; Eosinophils # 0.2 10^3/uL (0.0-0.8); Eosinophils % 1.4 %; Hematocrit 39.9 % (36-47); Lymphocytes # 2.3 10^3/uL (0.8-4.8); Lymphocytes % 22.2 %; Mean Corpuscular HGB Conc 33.8 g/dL (30-55); Mean Corpuscular Hemoglobin 30.8 pg (27-33); Mean Corpuscular Volume 91.1 fl (85-98); Mean Platelet Volume 11.2 fL (7.4-10.4); Monocytes # 0.6 10^3/uL (0.2-0.9); Monocytes % 5.7 %; Neutrophils # 7.18 10^3/uL (1.8-7.7); Neutrophils % 68.8 %; Nucleated Red Blood Cells % 0 %; Platelet Count 241 10^3/cmm (157-399); Red Blood Count 4.38 10^6/uL (3.85-5.65); Red Cell Distribution Width 13.5 % (12.1-15.1); White Blood Count 10.44 10^3/uL (3.29-11.43)
[2024-09-12] MEDS: lactated ringers 1,000 ML 999 ML IV ×2 (10:47→11:48)
[2024-09-12] MEDS: ampicillin 2,000 MG in sodium chloride 0.9% (plus) 50 ML 100 MG IV (11:47)
[2024-09-12] MEDS: ROPivacaine syringe 100 MG/50 ML SYRINGE 10 MG EPIDURAL ×2 (12:31→16:14)
[2024-09-12 12:52] LABS: Amphetamines Screen Urine Negative (Negative); Barbiturates Screen Urine Negative (Negative); Benzodiazepines Screen Urine Negative (Negative); Cocaine Screen Urine Negative (Negative); Opiate Screen Urine Negative (Negative); PCP Screen Urine Negative (Negative); THC Screen Urine Negative (Negative)
[2024-09-12] MEDS: dextrose 5%-lactated ringers 1,000 ML 125 ML IV (12:52)
[2024-09-12] MEDS: calcium carbonate 500 mg Chew Tablet 1000 MG PO (12:52)
--- NOTE | 2024-09-12 13:17 | ANES.PREANE2 ---
Pre-Anesthetic Assessment Height/Weight: Height 5 ft 2 in Weight 172 lb Pulse BP Pulse Ox O2 Del Method 71 138/65 100 Room Air 09/12/24 13:15 09/12/24 13:15 09/12/24 12:52 09/12/24 09:52 Preop Diagnosis: IUP Was Beta Codie taken within 24 hours: N/A Was Clonidine taken within 24 hours: N/A Social No alcohol and No tobacco Prior smoker Exam alert, oriented x 3, clear to auscultation bilaterally and regular rate & rhythm Airway Submandibular: within normal limits Cervical ROM: within normal limits Mallampati: Class III Dentition: full Anesthetic Plan ASA status: 2 Anesthesia: Regional (specify below) Other: G3, P2 requesting epidural No issues during History of GERD, on omeprazole Patient does note to have scoliosis Labs reviewed and acceptable for procedure Plan for routine epidural placement Medications/Allergies Home Medications ?Medication ?Instructions ?Recorded ?Confirmed ?Last Taken ?Type acetaminophen 500 mg tablet 500 mg PO Q6H PRN Pain 11/13/21 09/12/24 Unknown History pediatric multivitamin no.49 2 tab PO DAILY 11/13/21 09/12/24 05/04/22 07:00 History (Flintstones Gummies chewable tablet) omeprazole 1 tab PO Q6H 05/04/22 09/12/24 05/04/22 07:00 History Allergies Allergy/AdvReac Type Severity Reaction Status Date / Time No Known Allergies Allergy Verified 07/12/23 10:21 Current Medications Generic Name Dose Route Start Last Admin Trade Name Freq PRN Reason Stop Dose Admin Calcium Carbonate 1,000 mg 09/12/24 09:57 09/12/24 12:52 Calcium Carbonate 500 Mg Chew Tablet PO 1,000 mg Q4H PRN Administration Heartburn/Indigestion (Use 1st) Dextrose/Lactated Ringer's 1,000 mls @ 125 mls/hr 09/12/24 10:00 09/12/24 12:52 Dextrose 5%-Lactated Ringers IV 125 mls/hr .Q8H MERCEDES Administration Lactated Ringer's 1,000 mls @ 999 mls/hr 09/12/24 09:58 09/12/24 11:48 Lactated Ringers IV 999 mls/hr .Q1H1M PRN Administration See label comments Ropivacaine 100 mg in 50 mls @ 10 mls/hr 09/12/24 09:58 09/12/24 12:31 Naropin Syringe EPIDURAL 10 mls/hr .Q5H PRN Administration LABOR PAIN PFSH Anesthesia Medical History No significant past medical history Surgical History No significant past surgical history Family History (Updated 11/25/21 @ 23:42 by Dane More MD) Denies family history of Clotting disorder Bleeding disorder Social History Smoking and tobacco/nicotine status: current every day tobacco/nicotine user Female Reproductive History : 4 Data Anesthesia 09/12/24 10:20 Short CBC 09/12/24 Range/Units 10:20 WBC 10.44 (3.29-11.43) 10^3/uL Hgb 13.50 (11.27-16.99) g/dL Hct 39.9 (36-47) % MCV 91.1 (85-98) fl Plt Count 241 (157-399) 10^3/cmm Neut % (Auto) 68.8 % Neut # (Auto) 7.18 (1.8-7.7) 10^3/uL Blood Bank 09/12/24 10:20 Blood Type O Negative Rho(D) Type Rh negative Antibody Screen Positive Cardiac Studies: No Data to Display
--- NOTE | 2024-09-12 13:18 | ANES.PROC ---
Anesthesia Procedures Procedure/Date: 09/12/24 Epidural: Time Out Performed: Yes Consents Signed: Procedure Consent and NPO Consent Consent: requested by attending/covering physician and from patient Lumbar Level: L3-L4 Epidural position: sitting Epidural procedure: sterile prep of area Additional Comments: Site was prepped with ChloraPrep. 1% lidocaine was used to numb up the skin. Epidural needle was advanced to 8 cm until [id number] was received. A 27-gauge spinal needle was then introduced into the intrathecal space. 1 cc of 0.25% bupivacaine was then injected. Spinal needle was removed and epidural catheter was advanced into the epidural space and left at 15 cm to the skin. Patient tolerated procedure well dressing was then applied. 0.2% ropivacaine was set at 10 mL/h
[2024-09-12] MEDS: ampicillin 1,000 MG in sodium chloride 0.9% (plus) 50 ML 100 MG IV (16:14)
[2024-09-12] MEDS: alum-mag-hydroxide-sime 30 mL UDC PO (17:06)
[2024-09-12] MEDS: oxytocin 30 UNIT/500 ML BAG 600 UNIT IV (17:28)
--- NOTE | 2024-09-12 17:38 | P.HP_ITS ---
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 Patient initially sheldon every 3 to 5 minutes. Patient rated her contraction pain at 7 out of 10. Initially checked at 4 cm and after 1 hour had increased to 5 cm. Patient has had no complications during this . Patient was overall negative and did receive RhoGAM. The patient's GBS was done yesterday and it has not resulted. Present Details : 4 Para: 2 Labs Rubella: Non-Immune RPR: Negative GBS: Unknown Review of Systems 2 Const: Reports: fever(s), chills and body aches ENMT: Reports: nasal congestion Card: Denies: chest pain Resp: Reports: non-productive cough Skin/Breast: Denies: rash Neuro: Reports: headache(s) Psych: Denies: difficulty concentrating Medications/Allergies Home Medications ?Medication ?Instructions ?Recorded ?Confirmed ?Last Taken ?Type acetaminophen 500 mg tablet 500 mg PO Q6H PRN Pain 09/12/24 Unknown History pediatric multivitamin no.49 2 tab PO DAILY 11/13/21 0 09/12/24 05/04/22 07:00 History (Flintstones Gummies chewable tablet) omeprazole 1 tab PO Q6H 05/04/2205/04/22 07:00 History Allergies Allergy/AdvReac Type Severity Reaction Status Date / Time No Known Allergies Allergy Verified 07/12/23 10:21 [facility] TRANSITION NURSE 2 PFSH: Medical History No significant past medical history Surgical History No significant past surgical history Family History (Updated 11/25/21 @ 23:42 by Dane More MD) Denies family history of Clotting disorder Bleeding disorder Social History Smoking and tobacco/nicotine status: current every day tobacco/nicotine user Vitals/I&O/Wt Last Vital Signs Pulse 114 H 09/12/24 17:16 BP 116/55 09/12/24 17:16 Pulse Ox 100 09/12/24 12:52 O2 Del Method Room Air 09/12/24 09:52 09/12/24 09/12/24 09/12/24 06:59 14:59 22:59 Intake Total 1050 / 1050 50 / 1100 Balance 1050 / 1050 50 / 1100 Weight last 48 hrs Weight 78.018 kg Physical Exam 2 Const: COMMON NORMALS: no acute distress and patient oriented x3 Resp: COMMON NORMALS: normal respiratory effort and No retractions GI: OTHER: Gravid uterus Extremity: COMMON NORMALS: no clubbing, cyanosis or edema Neuro: COMMON NORMALS: moves all extremities Psych: COMMON NORMALS: mental status grossly normal, cooperative and normal affect Urinary Catheter Management: Nichols Latex: Cath Placed During This Visit: yes Urinary Catheter Date of Insertion: 09/12/24 Urinary Catheter Time of Insertion: 12:43 Data 09/12/24 10:20 Results Labs OB ([facility]): 2 Blood Type O Negative 09/12/24 Antibody Screen Positive 09/12/24 Hct 39.9 % (36-47) 09/12/24 Hgb 13.50 g/dL (11.27-16.99) 09/12/24 Rho(D) Type Rh negative 09/12/24 Plt Count 241 10^3/cmm (157-399) 09/12/24 Urine Opiates Screen Negative ng/mL (Negative) 09/12/24 Ur Barbiturates Screen Negative ng/mL (Negative) 09/12/24 Ur Phencyclidine Scrn Negative ng/mL (Negative) 09/12/24 Ur Amphetamines Screen Negative ng/mL (Negative) 09/12/24 U Benzodiazepines Scrn Negative ng/mL (Negative) 09/12/24 Urine Cocaine Screen Negative ng/mL (Negative) 09/12/24 U Marijuana (THC) Screen Negative ng/mL (Negative) 09/12/24 A&P Assessment and plan (1) Term : Recommend proceeding with routine labor management. (2) 37 weeks gestation of : PDMP PDMP Reviewed: Not Reviewed Attestations 2 Medical Necessity Statement*: Patient admitted for labor. Anticipate at least 1 midnight stay. Coding Level of Care Code Acute Code for Chg Fwd Diagnoses Term Z34.90 37 weeks gestation of Z3A.37
--- NOTE | 2024-09-12 17:43 | P.PCNOB_ITS ---
Delivery Note: Date of delivery: September 12, 2024 Pre-delivery diagnoses: Term intrauterine Post-delivery diagnoses: Same, viable infant male Procedure: Spontaneous vaginal delivery Delivering Physician: Dr. Travis Barton Estimated blood loss (mL): 150 Pre-Delivery Course: This is a 28-year-old G4, P3 that presented at 37 weeks with active contractions. Patient progressed to completion as expected. Delivery: Upon arrival the patient was checked and was found to be complete with a bulging bag. Artificial rupture of membrane was performed and there was clear fluid. The patient then was placed into the normal lithotomy position and started pushing with contractions. After several pushes the patient delivered the head and shoulder without difficulty. Infant was then placed onto mother's abdomen and after short delay the cord was clamped and cut. Placenta was delivered soon after. Review of the perineum did not demonstrate any s ignificant perineal tear. Patient did have 1 small left labial tear that was not actively bleeding and did not need suture. Uterus was firm and no significant bleeding was noted. Post-Delivery Status: Stable A&P Assessment and plan (1) (normal spontaneous vaginal delivery): Proceed with routine labor management PDMP PDMP Reviewed: Not Reviewed Coding Level of Care Code Acute Code for Chg Fwd Diagnoses (normal spontaneous vaginal delivery) O80
[2024-09-12] MEDS: docusate sodium 100 mg Capsule PO (20:04)
[2024-09-12] MEDS: ibuprofen 800 mg tablet PO (20:04)
[2024-09-13 00:34] VITALS: BP 123/67; PULSE 95
[2024-09-13 05:04] VITALS: BP 140/70; PULSE 94
[2024-09-13] MEDS: HYDROcodone-acetaminophen 5-325 mg Tablet PO (05:12)
[2024-09-13 05:22] LABS: Hematocrit 34.8 % (36-47); Mean Corpuscular HGB Conc 33.3 g/dL (30-55); Mean Corpuscular Hemoglobin 30.8 pg (27-33); Mean Corpuscular Volume 92.3 fl (85-98); Platelet Count 182 10^3/cmm (157-399); Red Blood Count 3.77 10^6/uL (3.85-5.65); Red Cell Distribution Width 13.8 % (12.1-15.1); White Blood Count 11.17 10^3/uL (3.29-11.43)
--- NOTE | 2024-09-13 06:44 | P.PN_ITS ---
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 Mom has been up and ambulating without difficulty. The patient is not having any difficulty voiding. Pain is well managed. Patient states that bleeding has been appropriate and expresses no concerns. Labor: Station: 0 Amniotic Membrane Status: Ruptured Monitor Mode: External Contraction Pattern: Irregular Post /CS: Patient comments OB post-: no complaints, pain well controlled and tolerating diet [place] baby status: bottle feeding well N ewborn feeding status: exclusively bottle feeding Vitals/I&O/Wt Last Vital Signs Pulse 94 09/13/24 05:04 BP 140/70 09/13/24 05:04 Pulse Ox 100 09/12/24 12:52 O2 Del Method Room Air 09/12/24 09:52 09/12/24 09/12/24 09/13/24 14:59 22:59 06:59 Intake Total 2049 470 / 2520 Output Total 800 / 800 Balance 2049 -330 / 1720 Weight last 48 hrs Weight 78.018 kg Physical Exam 2 Const: COMMON NORMALS: no acute distress and patient oriented x3 Resp: COMMON NORMALS: normal respiratory effort and No retractions GI: OTHER: Uterus firm and below the umbilicus Extremity: COMMON NORMALS: no clubbing, cyanosis or edema Neuro: COMMON NORMALS: patient oriented x3 and moves all extremities Psych: COMMON NORMALS: mental status grossly normal, cooperative and normal affect Urinary Catheter Management: Nichols Latex: Cath Placed During This Visit: yes, but has since been removed by the nurse Reason for Continuing Indwelling Catheter: Decision to DC Catheter Urinary Catheter Date of Insertion: 09/12/24 Urinary Catheter Time of Insertion: 12:43 Date Urinary Catheter Removed: 09/12/24 Time Urinary Catheter Discontinued: 17:17 Data 09/13/24 05:15 A&P Assessment and plan (1) (normal spontaneous vaginal delivery): Continue routine care PDMP PDMP Reviewed: Not Reviewed Attestations 2 Medical Necessity Statement*: Patient was admitted for labor. Anticipate 2 midnight stay. Coding Level of Care Code Acute Code for Chg Fwd Diagnoses (normal spontaneous vaginal delivery) O80
[2024-09-13 09:48] VITALS: BP 115/74; PULSE 90
[2024-09-13] MEDS: PRENATAL VIT NO.130/IRON/FOLIC 1 EACH TABLET PO (09:48)
[2024-09-13] MEDS: ibuprofen 800 mg tablet PO ×3 (09:48→20:37)
[2024-09-13] MEDS: docusate sodium 100 mg Capsule PO ×2 (09:48→20:37)
[2024-09-13 14:35] VITALS: BP 109/61; PULSE 82
--- NOTE | 2024-09-13 14:56 | ANE.PACU2 ---
Inpatient post-anesthesia follow up: Airway intact: Yes Vital signs: Temperature Pulse Rate 82 Respiratory Rate Blood Pressure 109/61 Pulse Oximetry 100 Oxygen Delivery Me thod Room Air Oxygen Flow Rate Fraction of Inspir ed Oxygen Hydration adequate: Yes Nausea and vomiting: No Pain level: 1 Mental status: Baseline Epidural Start/End: Epidural Start Date: 09/12/24 Epidural Start Time: 12:12 Epidural End Date: 09/12/24 Epidural End Time: 19:24
--- NOTE | 2024-09-13 19:49 | P.DS_ITS ---
Discharge Providers PARTY PLAN SALES DIRECTOR Date of Admission: 09/12/24 09:56 Date of Discharge: 09/13/24 Attending Provider at Admission: Travis Barton MD Attending Provider at Discharge: Travis Barton MD Primary Care Provider: Radha Vazquez Diagnoses at Discharge Discharge Diagnosis (1) (normal spontaneous vaginal delivery): Status: Acute Reason for Visit Reason for Visit: Ctx Hospital Course Hospital Course This is a 28-year-old G4, P3 that presented at 37 weeks in active labor. The patient progressed to completion as expected. The patient delivered a viable infant male without complication. care was unremarkable. did develop distress and had to be transferred to higher level care. Mom had no complications and was stable for discharge. Information Peripartum Data: Infant Delivery Method: Vaginal Laceration description: Labial Episiotomy description: None complications: none Physical Exam Const: COMMON NORMALS: no acute distress and patient oriented x3 Resp: COMMON NORMALS: normal respiratory effort and No retractions GI: OTHER: Uterus firm and below the umbilicus Extremity: COMMON NORMALS: no clubbing, cyanosis or edema Neuro: COMMON NORMALS: patient oriented x3 and moves all extremities Psych: COMMON NORMALS: mental status grossly normal, cooperative and normal affect Urinary Catheter Management: Nichols Latex: Cath Placed During This Visit: yes, but has since been removed by the nurse Reason for Continuing Indwelling Catheter: Decision to DC Catheter Urinary Catheter Date of Insertion: 09/12/24 Urinary Catheter Time of Insertion: 12:43 Date Urinary Catheter Removed: 09/12/24 Time Urinary Catheter Discontinued: 17:17 Discharge Data Studies Completed and Pending Laboratory Results WBC 11.17 10^3/uL (3.29-11.43) 09/13/24 05:15 RBC 3.77 10^6/uL (3.85-5.65) L 09/13/24 05:15 Hgb 11.60 g/dL (11.27-16.99) 09/13/24 05:15 Hct 34.8 % (36-47) L 09/13/24 05:15 MCV 92.3 fl (85-98) 09/13/24 05:15 MCH 30.8 pg (27-33) 09/13/24 05:15 MCHC 33.3 g/dL (30-55) 09/13/24 05:15 RDW 13.8 % (12.1-15.1) 09/13/24 05:15 Plt Count 182 10^3/cmm (157-399) 09/13/24 05:15 MPV 11.0 fL (7.4-10.4) H 09/13/24 05:15 Neut % (Auto) 68.8 % 09/12/24 10:20 Lymph % (Auto) 22.2 % 09/12/24 10:20 [place] % (Auto) 5.7 % 09/12/24 10:20 Eos % (Auto) 1.4 % 09/12/24 10:20 Baso % (Auto) 0.5 % 09/12/24 10:20 Neut # (Auto) 7.18 10^3/uL (1.8-7.7) 09/12/24 10:20 Lymph # (Auto) 2.3 10^3/uL (0.8-4.8) 09/12/24 10:20 [place] # (Auto) 0.6 10^3/uL (0.2-0.9) 09/12/24 10:20 Eos # (Auto) 0.2 10^3/uL (0.0-0.8) 09/12/24 10:20 Baso # (Auto) 0.1 10^3/uL (0.0-0.1) 09/12/24 10:20 Nucleated RBC % (auto) 0 % 09/12/24 10:20 Nucleated RBCs # 0.0 /100WBC 09/12/24 10:20 Urine Opiates Screen Negative ng/mL (Negative) 09/12/24 10:20 Ur Barbiturates Screen Negative ng/mL (Negative) 09/12/24 10:20 Ur Phencyclidine Scrn Negative ng/mL (Negative) 09/12/24 10:20 Ur Amphetamines Screen Negative ng/mL (Negative) 09/12/24 10:20 U Benzodiazepines Scrn Negative ng/mL (Negative) 09/12/24 10:20 Urine Cocaine Screen Negative ng/mL (Negative) 09/12/24 10:20 U Marijuana (THC) Screen Negative ng/mL (Negative) 09/12/24 10:20 Blood Type O Negative 09/12/24 10:20 Rho(D) Type Rh negative 09/12/24 10:20 Antibody Screen Positive 09/12/24 10:20 Antibody Identification Anti-D 09/12/24 10:20 Vitals Last Vital Signs Pulse 82 09/13/24 14:35 BP 109/61 09/13/24 14:35 Pulse Ox 100 09/12/24 12:52 O2 Del Method Room Air 09/12/24 09:52 Results Labs OB ([facility]): Blood Type O Negative 09/12/24 Antibody Screen Positive 09/12/24 Hct 34.8 % (36-47) L 09/13/24 Hgb 11.60 g/dL (11.27-16.99) 09/13/24 Rho(D) Type Rh negative 09/12/24 Plt Count 182 10^3/cmm (157-399) 09/13/24 Urine Opiates Screen Negative ng/mL (Negative) 09/12/24 Ur Barbiturates Screen Negative ng/mL (Negative) 09/12/24 Ur Phencyclidine Scrn Negative ng/mL (Negative) 09/12/24 Ur Amphetamines Screen Negative ng/mL (Negative) 09/12/24 U Benzodiazepines Scrn Negative ng/mL (Negative) 09/12/24 Urine Cocaine Screen Negative ng/mL (Negative) 09/12/24 U Marijuana (THC) Screen Negative ng/mL (Negative) 09/12/24 Discharge Plan Discharge Patient Disposition: Home Condition: Stable Prescriptions: Continued acetaminophen 500 mg Tablet 500 mg PO Q6H PRN (Reason: Pain) Flintstones Gummies Tablet,Chewable 2 tab PO DAILY omeprazole 1 tab PO Q6H Discharge Orders: Discharge Order (Routine); Ordered 09/13/24 Ordered By: Travis Bartno Referrals: Travis Barton MD [Physician] - 10/24/24 9:30 am Discharge Diet: Usual diet Discharge Activity: Limit activity as instructed Patient Instructions: Depression (DC), Opioid Safety (DC), Preeclampsia and Eclampsia After Delivery (GEN), Hemorrhage (DC), OB Discharge Report, OB Food/Drug Interaction Guide, OB Care at Home, Opioid Safety, OB Vaginal Deliveries, Abnormal Bleeding Discharge Attestations PARTY PLAN SALES DIRECTOR Time Spent in Discharge Care*: less than 30 min Coding Level of Care Code Acute Code for Chg Fwd Diagnoses (normal spontaneous vaginal delivery) O80
[2024-09-13 20:40] VITALS: BP 135/70; PULSE 102
[2024-09-13 20:44] VITALS: BP 135/70; PULSE 102; RESP 16; TEMP 36.7; O2SAT 98
== END 2024-09-13 20:40 | disposition home or self-care (01) | DRG 806 ==
LOC: OPOB 09:56 → OBGYN 09:56
PROVIDERS: Admitting Provider Family Medicine; PCP Nurse Practitioner Family; Visit Provider Family Medicine
DX: O99.334 Smoking (tobacco) complicating childbirth (principal); O36.0930 Maternal care for other rhesus isoimmunization, third trimester, not applicable or unspecified; Z37.0 Single live birth; F17.200 Nicotine dependence, unspecified, uncomplicated; Z3A.37 37 weeks gestation of pregnancy
CPT/HCPCS: 36415; 51702; 59025; 59409; 80306; 80503; 85025; 85027; 86850; 86870; 86900; 99211; J0290; J2590; J2795; J3490; J7120; J7121; J9999

== ENCOUNTER 2025-01-15 10:43 | Day surgery (SDC) | payer BC, MEDICAID, SELFPAY ==
[2025-01-15] VITALS (10 sets, daily range): BP systolic 96–115; BP diastolic 62–76; PULSE 48–87; RESP 15–21; TEMP 36.1–36.6; O2SAT 94–100; BMI 31.8
--- NOTE | 2025-01-15 06:52 | W.PM.OPSFHP ---
Same Day Surgery H&P Indication for Procedure/HPI DATE OF PROCEDURE: January 15, 2025 CHIEF COMPLAINT/INDICATIONFOR SURGICAL PROCEDURE: desires permanent sterilization PREOP DIAGNOSIS: desires permanent sterilization PLANNED PROCEDURE: Operation Date: 01/15/25 12:20 Proposed Procedures p BILATERAL Laparoscopic Salpingectomy 42547 Z30.2(Bilateral) - Griffin Jimenez MD Medications/Allergies* Home Medications ?Medication ?Instructions ?Recorded ?Confirmed ?Type acetaminophen 500 mg tablet 500 mg PO Q6H PRN Pain 11/13/21 01/14/25 History Allergies/Adverse Reactions Allergy/AdvReac Type Severity Reaction Status Date / Time No Known Allergies Allergy Verified 12/10/24 08:32 Pertinent History/Comorbid Conditions* Medical History (Updated 12/27/24 @ 18:44 by Griffin Jimenez MD) (normal spontaneous vaginal delivery) No significant past medical history Surgical History (Updated 11/25/21 @ 23:42 by Dane More MD) No significant past surgical history Family History (Updated 12/10/24 @ 14:27 by Nathalie Garcia CMA) Ovarian cancer Mother Heart disease Grandfather Hypertension Mother Uterine cancer Mother Denies family history of Clotting disorder Bleeding disorder Social History Smoking and tobacco/nicotine status: former use of tobacco/nicotine (quit 2021) Pertinent Exam Findings alert, oriented x 3, clear to auscultation bilaterally and regular rate & rhythm Recommendations Surgery/Procedure today Coding Level of Care Code Acute Code for Chg Fwd
[2025-01-15 11:26] LABS: OR HCG Qualitative Urine Negative (Negative)
--- NOTE | 2025-01-15 11:46 | ANES.PREANE2 ---
Pre-Anesthetic Assessment Height/Weight: Height 5 ft 2 in Weight 174 lb Temp Pulse Resp BP Pulse Ox O2 Del Method 97.6 F 87 17 112/71 100 Room Air 01/15/25 10:58 01/15/25 10:58 01/15/25 10:58 01/15/25 10:58 01/15/25 10:58 01/15/25 10:58 Preop Diagnosis: desires permanent sterilization Operation Date: 01/15/25 12:20 Proposed Procedures p BILATERAL Laparoscopic Salpingectomy 65064 Z30.2(Bilateral) - Griffin Jimenez MD Was Beta Codie taken within 24 hours: N/A Was Clonidine taken within 24 hours: N/A Last intake: Intake Last Liquid Date 01/14/25 Last Liquid Time 22:30 Last Solid Date 01/14/25 Last Solid Time 21:30 Social Tobacco and No alcohol Exam alert, oriented x 3, clear to auscultation bilaterally and regular rate & rhythm Airway Submandibular: within normal limits Cervical ROM: within normal limits Mallampati: Class II Dentition: full Anesthetic Plan ASA status: 2 Anesthesia: General Other: Patient states that she had an episode of aspiration pneumonia during her ear procedure in the past NPO since yesterday evening Denies any cardiac issues Current smoker, vapes nicotine hCG negative METs greater than 4 Plan for general anesthesia Medications/Allergies Home Medications ?Medication ?Instructions ?Recorded ?Confirmed ?Last Taken ?Type acetaminophen 500 mg tablet 500 mg PO Q6H PRN Pain 11/13/21 01/14/25 01/14/25 History Allergies Allergy/AdvReac Type Severity Reaction Status Date / Time No Known Allergies Allergy Verified 01/15/25 10:57 Current Medications Generic Name Dose Route Start Last Admin Trade Name Freq PRN Reason Stop Dose Admin Sodium Chloride 1,000 mls @ 30 mls/hr 01/15/25 11:00 01/15/25 11:24 Sodium Chloride 0.9% IV 01/16/25 10:59 30 mls/hr .Q24H MERCEDES Administration PFSH Anesthesia Medical History (Updated 12/27/24 @ 18:44 by Griffin Jimenez MD) (normal spontaneous vaginal delivery) No significant past medical history Surgical History (Updated 12/10/24 @ 14:33 by Nathalie Garcia CMA) No significant past surgical history Family History (Updated 12/10/24 @ 14:27 by Nathalie Garcia CMA) Mother Uterine cancer Ovarian cancer Hypertension Grandfather Heart disease Denies family history of Clotting disorder Bleeding disorder Social History Smoking and tobacco/nicotine status: former use of tobacco/nicotine (quit 2021) Female Reproductive History Date of last menstrual period: 12/31/24
--- NOTE | 2025-01-15 13:10 | W.PM.OPSUD ---
Surgery/Procedure H&P Update DATE OF PROCEDURE: January 15, 2025 DATE H&P PERFORMED: 01/15/25 H&P UPDATE INFORMATION: I have reviewed H&P completed within last 30 days, I have examined patient prior to procedure and No changes to prior documentation PREOP DIAGNOSIS: desires permanent sterilization PLANNED PROCEDURE: Operation Date: 01/15/25 12:20 Proposed Procedures p BILATERAL Laparoscopic Salpingectomy 98078 Z30.2(Bilateral) - Griffin Jimenez MD
--- NOTE | 2025-01-15 15:05 | P.OP_ITS ---
Operative Report Date of procedure: January 15, 2025 Pre-op diagnosis: desires permanent sterilization Post-op diagnosis: same Post-op findings: normal uterus, tubes, and ovaries Procedure done: laparoscopic bilateral salpingectomy Implants: none Specimens removed/disposition: bilateral fallopian tube segments Surgeon: Griffin Jimenez MD Anesthesia: General Estimated blood loss (mL): 5 Complications: none Findings: see above Condition: stable Disposition: PACU Brief History: 29 y.o. desires permanent sterilization Procedure: The patient was taken to the OR and placed on the table. General endotracheal anesthesia was induced. The abdomen was then prepped and draped in the usual fashion. A 5 mm subumbilical skin incision was made. A 5 mm trocar with sheath was then inserted into the peritoneal cavity under direct visualization with the laparoscope. After confirming intraperitoneal position, pneumoperitoneum was achieved. Two separate 5 mm incisions were made in the right and left mid- quadrants. 5 mm trocars with sheaths were then inserted into the peritoneal cavity under direct visualization with the laparoscope. The right fallopian tube was then identified to its fimbrial end. Starting at the fimbrial end, the mesosalpinx was then coagulated and cut using the Ligasure. The right fallopian tube was excised and removed via one of the ports. This was sent to pathology. There was no bleeding seen. Similarly, the left fallopian tube was identified to its fimbrial end. The left fallopian tube was excised and removed, sent to pathology. There was no bleeding. All instruments were then removed from the peritoneal cavity after the pneumoperitoneum was allowed to escape. The skin incisions were closed using 3- O chromic in subcuticular fashion. Dermabond was applied. The patient was then placed supine and awakened, taken the the PACU in good condition. Postop condition: stable EBL: 5 cc Complications: none Sponge, needles, and instruments counts correct x two
[2025-01-15] MEDS: oxyCODONE-APAP 5-325 mg Tablet 1 TAB PO (15:24)
== END 2025-01-15 16:20 | disposition home or self-care (01) ==
PROVIDERS: PCP Nurse Practitioner Family; Visit Provider Obstetrics & Gynecology
PROC: (CPT 58661; principal; 2025-01-15 12:10)
DX: Z30.2 Encounter for sterilization (principal); F17.290 Nicotine dependence, other tobacco product, uncomplicated
CPT/HCPCS: 58661; 81025; 88302; A4216; J0131; J1100; J1200; J1885; J2250; J2405; J2704; J2710; J3010; J3490; J7030; J9999